=== PATIENT | female | born 1985 | race Caucasian/White ===

== ENCOUNTER 2016-10-03 14:15 | Emergency (ER) | payer OTHER ==
[~2016-10-03] VITALS: Ht 165.1 cm; Wt 53.5 kg
[~2016-10-03 14:15] MED LIST: SUCR1TAB PO; SYNT75TA PO
[2016-10-03 14:20] VITALS: BP 97/64; PULSE 74; RESP 16; TEMP 98.5; O2SAT 100
[2016-10-03] MEDS ORDERED: ALPR.25 PO (15:13)
[2016-10-03] MEDS ORDERED: LEVO.1 PO (15:13)
[2016-10-03] MEDS ORDERED: ZOLO25TA PO (15:13)
--- NOTE | 2016-10-03 15:36 | PD ---
HPI . left arm numbness, tingling, and pain Chief Complaint: Back/ Neck Pain or Injury Time Seen by Provider: 15:36 Travel History International Travel<30 days: No Contact w/Intl Traveler<30days: No Traveled to known affect area: No History of Present Illness HPI 31-year-old female with no significant past medical history here with complaints of left arm numbness, tingling and pain for about a week. Patient says she has been having these issues for some time and was concerned about cardiac etiology. She decided to come to the ED for further evaluation. She thinks she may have hurt something working out but just wanted peace of mind that this was not a heart attack. Her primary care providers Dr. Reeves. She denies any nausea, vomiting, diaphoresis or other symptoms. PFSH Past Medical History Asthma: Yes (Asthmatic bronchitis) Anxiety: Yes Cancer: Yes (Skin, thyroid) Cardiovascular Problems: No Diabetes: No Diminished Hearing: No Endocrine: Yes Gastrointestinal Disorders: Yes (Indigestion) Genitourinary: No Hepatitis: No Hiatal Hernia: No Hypertension: No Immune Disorder: Yes Medical other: No Musculoskeletal: No Neurologic: No Psychiatric: Yes (Anxiety) Reproductive: No Respiratory: Yes Immunizations Current: Yes Thyroid Disease: Yes (Hypo-) Tetanus Vaccination: Unknown ?: Not : 0 Para: 0 Past Surgical History AICD: No Body Medical Devices: Metal lower retainer Endocrine Surgery: Yes (Thyroidectomy) Joint Replacement: No Oral Surgery: Yes ([place] teeth) Pacemaker: No Other Surgery: Yes (TOTAL THYROIDECTOMY ()) Social History Alcohol Use: No Tobacco Use: No Substance Use: No Allergies-Medications (Allergen,Severity, Reaction): Coded Allergies: Zantac (Verified Allergy, Severe, RASH, 10/03/16) Tramadol (Verified Allergy, Intermediate, Nausea/Vomiting, 10/03/16) Reported Meds & Prescriptions Reported Meds & Active Scripts Active Reported Xanax (Alprazolam) 0.25 Mg Tab 0.125 Mg PO Q4H PRN Synthroid (Levothyroxine Sodium) 100 Mcg Tab 100 Mcg PO DAILY Zoloft (Sertraline HCl) 25 Mg Tab 12.5 Mg PO DAILY Review of Systems General / Constitutional: No: Fever Eyes: No: Visual changes HENT: No: Headaches Cardiovascular: No: Chest Pain or Discomfort Respiratory: No: Shortness of Breath Gastrointestinal: No: Abdominal Pain Genitourinary: No: Dysuria Musculoskeletal: Positive: Pain Skin: No Rash Neurologic: Positive: Paresthesia, No: Weakness Psychiatric: No: Depression Endocrine: No: Polydipsia Hematologic/Lymphatic: No: Easy Bruising Physical Exam Narrative GENERAL: AAO x 3, no acute distress, Well-nourished, well-developed patient. SKIN: Warm and dry. No visible rashes or bruising. HEAD: Normocephalic and atraumatic. EYES: No scleral icterus. No injection or drainage. ENT: No nasal drainage noted. Mucous membranes pink. Airway patent. NECK: Supple, trachea midline. No JVD. CARDIOVASCULAR: Regular rate and rhythm without murmurs, gallops, or rubs. RESPIRATORY: Breath sounds equal bilaterally. No accessory muscle use. No rhonchi or rales. GASTROINTESTINAL: Abdomen soft, non-tender, nondistended. EXTREMITIES: No cyanosis or edema. Sensation is normal in the left upper extremity. No point tenderness. [employer] strength is normal bilaterally. No abnormal findings NEURO: CN II through XII intact, upper arm strength normal bilaterally. Sensations are not reproducible on examination. BACK: Nontender without obvious deformity. No CVA tenderness. PSYCH: AAO x 3, normal affect. Data Data Last Documented VS Vital Signs Date Time Temp Pulse Resp B/P Pulse Ox O2 Delivery O2 Flow Rate FiO2 10/03/16 14:20 98.5 74 16 97/64 100 Orders Electrocardiogram (10/03/16 ) [facility] Medical Decision Making Medical Screen Exam Complete: Yes Emergency Medical Condition: Yes Medical Record Reviewed: Yes Differential Diagnosis Neuropathy, cervical radiculopathy, less likely ACS Narrative Course 31-year-old female with no significant past medical history here with complaints of left arm numbness, tingling and pain for about a week. Patient says she has been having these issues for some time and was concerned about cardiac etiology. She decided to come to the ED for further evaluation. She thinks she may have hurt something working out but just wanted peace of mind that this was not a heart attack. Her primary care providers Dr. Reeves. She denies any nausea, vomiting, diaphoresis or other symptoms. Patient seen and examined. She has no acute findings on examination. I do not believe she has any type of cardiac symptoms. She is here for peace of mind and concerned about cardiac etiology. I've ordered EKG. It demonstrates sinus rhythm. No acute findings. Confirmed by Dr. Son. Recommend follow-up with primary care provider as she will need further workup if her symptoms continue. Discussed that MRI may be helpful in pinpointing any type of disc disease. Patient verbalized understanding of instructions, questions were answered, and thanked me for their care. I advised them if their condition worsens, please return to the nearest emergency room for further care. Diagnosis Primary Impression: Nerve pain Patient Instructions: General Instructions Additional Instructions: Please return to emergency department if your symptoms return or worsen. Follow up with your primary care provider. Take medications as prescribed. As we discussed, you will need to follow-up with your primary care provider for further workup and treatment. Med/Other Pt SpecificInfo: No Meds Exist/No RX given Disposition: 01 DISCHARGE HOME Condition: Stable Hilaria Tolbert Oct 03, 2016 15:36
--- NOTE | 2016-10-04 20:14 | EKG ---
Date Performed: 10/03/2016 Time Performed: 15:47:00 PTAGE: 31 years EKG: Sinus rhythm Inferior T wave changes are nonspecific Borderline ECG PREVIOUS TRACING : 01/14/2016 22.04 Compared to prior tracing no significant change DOCTOR: Abdi Arnold Interpretating Date/Time 10/04/2016 20:13:59
== END 2016-10-03 16:17 | disposition home or self-care (01) ==
LOC: PHEFT 14:15
DX: M79.2 Neuralgia and neuritis, unspecified (principal); R94.31 Abnormal electrocardiogram [ECG] [EKG]; J45.909 Unspecified asthma, uncomplicated; E07.9 Disorder of thyroid, unspecified
CPT/HCPCS: 93005